=== PATIENT | male | born 1995 | race Caucasian/White ===

== ENCOUNTER 2016-11-27 18:51 | Emergency (ER) | payer SELFPAY ==
[2016-11-27 19:19] VITALS: BP 117/67
--- NOTE | 2016-11-27 20:22 | ED ---
Throat Pain/Nasal Congestion - HPI Summary HPI Summary: 21 yr old male with bilateral eye irritation, yellow drainage. Onset three days ago. He does not wear contact lenses. He has been rubbing his eyes a lot. No change in vision. - History of Current Complaint Chief Complaint: UCEye Time Seen by Provider: 11/27/16 20:05 - Allergies/Home Medications Allergies/Adverse Reactions: Allergies Allergy/AdvReac Type Severity Reaction Status Date / Time No Known Allergies Allergy Verified 11/27/16 19:19 PMH/Surg Hx/FS Hx/Imm Hx Previously Healthy: Yes Infectious Disease History: No Infectious Disease History: Denies: Traveled Outside the [place] in Last 30 Days - Family History Known Family History: Positive: None - Social History Alcohol Use: Weekly Substance Use Type: Reports: None Smoking Status (MU): Never Smoked Tobacco Review of Systems Constitutional: Negative Positive: Drainage. Negative: Photophobia, Blurred Vision ENT: Negative All Other Systems Reviewed And Are Negative: Yes Physical Exam Triage Information Reviewed: Yes Vital Signs On Initial Exam: Initial Vitals Temp Pulse Resp BP Pulse Ox 99.1 F 92 16 117/67 97 11/27/16 19:14 11/27/16 19:14 11/27/16 19:14 11/27/16 19:14 11/27/16 19:14 Vital Signs Reviewed: Yes Appearance: Positive: Well-Appearing, No Pain Distress Skin: Positive: Warm, Skin Color Reflects Adequate Perfusion Head/Face: Positive: Normal Head/Face Inspection Eyes: Positive: EOMI, ELLIOT, Conjunctiva Inflammed Respiratory/Lung Sounds: Positive: Clear to Auscultation Musculoskeletal: Positive: Normal, Strength/ROM Intact Neurological: Positive: Normal, Sensory/Motor Intact, Alert, Oriented to Person Place, Time, CN Intact II-III Psychiatric: Positive: Normal Diagnostics - Vital Signs Vital Signs Temp Pulse Resp BP Pulse Ox 11/27/16 19:14 99.1 F 92 16 117/67 97 - Laboratory Lab Statement: Any lab studies that have been ordered have been reviewed, and results considered in the medical decision making process. EENT Course/Dx - Course Course Of Treatment: 21 yr old male with eye drainage, and irritation. WIll Rx with eye drops FU PMD> - Diagnoses Provider Diagnoses: Conjunctivitis Discharge - Discharge Plan Condition: Good Disposition: HOME Prescriptions: Sulfacetamide 10 % OPTH.SAVANNAH* [Sulamyd 10% Opth*] 1 drop BOTH EYES Q4H #1 btl Referrals: Non Staff,Doctor [Primary Care Provider] - [facility] [Outside]
== END 2016-11-27 20:44 | disposition home or self-care (01) ==
LOC: UCCORT 18:51
DX: H10.33 Unspecified acute conjunctivitis, bilateral (principal)
CPT/HCPCS: 99202; G0463

== ENCOUNTER 2017-09-21 10:06 | Emergency (ER) | payer OTHER ==
[2017-09-21 13:32] VITALS: BP 125/68
--- NOTE | 2017-09-21 13:51 | UC ---
FLU HPI - HPI Summary HPI Summary: 3 DAYS OF COUGH, CHEST CONGESTION, BODY ACHES, FATIGUE, SCRATCHY THROAT. ONSET AFTER LACROSSE PRACTICE OUTSIDE. NO FEVER. IS REQUESTING FLU SWAB. - History of Current Complaint Chief Complaint: UCRespiratory Stated Complaint: ST/CHEST CONGESTION Time Seen by Provider: 09/21/17 13:41 Hx Obtained From: Patient Onset/Duration: Gradual Onset, Lasting Days, Still Present Severity Currently: Moderate Severity Initially: Moderate Pain Intensity: 0 Pain Scale Used: 0-10 Numeric Associated Signs & Symptoms: Positive: Myalgia, Cough, Sore Throat, Nasal Congestion. Negative: Fever, Headache, Vomiting - Allergy/Home Medications Allergies/Adverse Reactions: Allergies Allergy/AdvReac Type Severity Reaction Status Date / Time No Known Allergies Allergy Verified 09/21/17 13:30 PMH/Surg Hx/FS Hx/Imm Hx Previously Healthy: Yes - Surgical History Surgical History: None - Family History Known Family History: Positive: None Negative: Hypertension - Social History Alcohol Use: None Substance Use Type: None Smoking Status (MU): Never Smoked Tobacco Review of Systems Constitutional: Fatigue ENT: Sore Throat, Nasal Discharge Respiratory: Cough Cardiovascular: Negative Gastrointestinal: Negative Musculoskeletal: Myalgia Neurological: Headache All Other Systems Reviewed And Are Negative: Yes Physical Exam Triage Information Reviewed: Yes Appearance: Well-Appearing, No Pain Distress, Well-Nourished Vital Signs: Initial Vital Signs Temp 98.9 F 09/21/17 13:27 Pulse 89 09/21/17 13:27 Resp 14 09/21/17 13:27 BP 125/68 09/21/17 13:27 Pulse Ox 100 09/21/17 13:27 Vital Signs Reviewed: Yes Eyes: Positive: Conjunctiva Clear ENT: Positive: Hearing grossly normal, Pharynx normal, Nasal congestion, TMs normal Neck: Positive: Supple, Nontender, No Lymphadenopathy Respiratory Exam: Normal Cardiovascular Exam: Normal Abdomen Description: Positive: Soft Musculoskeletal: Positive: No Edema Neurological: Positive: Alert Psychological: Positive: Age Appropriate Behavior Skin: Negative: rashes Diagnostics - Laboratory Diagnostic Studies Completed/Ordered: INFLUENZA A POSITIVE Flu Course/Dx - Differential Dx/Diagnosis Provider Diagnoses: INFLUENZA A Discharge - Discharge Plan Condition: Stable Disposition: HOME Prescriptions: Oseltamivir CAP* [Tamiflu CAP*] 75 mg PO BID #10 cap Patient Education Materials: Influenza (ED) Referrals: Surendra Ayala MD [Medical Doctor] - If Needed Additional Instructions: SWAB POSITIVE FOR INFLUENZA A. TAMIFLU TWICE DAILY FOR 5 DAYS. OTC MEDS NEEDED FOR FEVER, BODY ACHES. STAY WELL HYDRATED AND RESTED. SEEK FOLLOW-UP IF YOU ARE NOT IMPROVING EXPECTED.
== END 2017-09-21 14:20 | disposition home or self-care (01) ==
LOC: UCCORT 10:06
DX: J09.X2 Influenza due to identified novel influenza A virus with other respiratory manifestations (principal)
CPT/HCPCS: 87502; 99212; G0463